=== PATIENT | female | born 1970 | race Caucasian/White ===

== ENCOUNTER → 2020-12-01 | Day surgery (SDC) | payer OTHER ==
[~2020-12-01] MED LIST: ACETAMINOPHEN500 M1 PO; ASCORBIC ACID500 MG PO; BRIN20TA PO; COLACE100 MG PO; DIALYVITE VI1250 MCG PO; DIAZEPAM 2MG TAB2 MG PO; FLONASE ALLER15.8 ML INH; GABAPENTIN800 MG PO; GLYCOTROL CAPS1 EACH PO; HCTZ12.5 MG PO; LOVAZA1 GM PO; MOTRIN600 MG PO; NIASPAN1000 MG PO; ONE DAILY WOME1 EAC1 PO; PROTONIX 40MG T40 MG PO; SUBOXONE 8 MG-1 EACH PO; ZINC50 M1 PO
== END | disposition home or self-care (01) ==
LOC: FAS 07:48
DX: C18.6 Malignant neoplasm of descending colon (principal); D36.10 Benign neoplasm of peripheral nerves and autonomic nervous system, unspecified; K21.00 Gastro-esophageal reflux disease with esophagitis, without bleeding; K31.9 Disease of stomach and duodenum, unspecified; K29.70 Gastritis, unspecified, without bleeding; E61.1 Iron deficiency; G47.30 Sleep apnea, unspecified; F32.9 Major depressive disorder, single episode, unspecified; F41.9 Anxiety disorder, unspecified; F17.290 Nicotine dependence, other tobacco product, uncomplicated; Z88.1 Allergy status to other antibiotic agents; Z88.6 Allergy status to analgesic agent; Z99.89 Dependence on other enabling machines and devices
CPT/HCPCS: 84703; J2250; J2704; J7120

== ENCOUNTER → 2020-12-12 | Day surgery (SDC) | payer OTHER | END | disposition home or self-care (01) | LOC: FAS 10:44 | DX: C18.7 Malignant neoplasm of sigmoid colon (principal); C78.7 Secondary malignant neoplasm of liver and intrahepatic bile duct; K21.9 Gastro-esophageal reflux disease without esophagitis; K21.00 Gastro-esophageal reflux disease with esophagitis, without bleeding; K63.5 Polyp of colon; G47.30 Sleep apnea, unspecified; I10 Essential (primary) hypertension; Z90.49 Acquired absence of other specified parts of digestive tract; Z98.890 Other specified postprocedural states; Z20.822 Contact with and (suspected) exposure to COVID-19 | CPT/HCPCS: 71045; 76000; 77001; 84703; C1788; J0690; J1100; J1644; J2001; J2250; J2405; J2704; J3010 ==

== ENCOUNTER 2021-10-21 11:52 | Emergency (ER) | payer OTHER ==
[2021-10-21 14:15] LABS: BASOPHIL 0.7 % (0-2); EOSINOPHIL 3.8 % (0-5); HGB 10.2 g/dl (12.5-16.0); LYMPHOCYTE 37.3 % (15-48); MCH 34.1 pg (25.0-31.0); MCHC 32.9 g/dL (32.0-36.0); MCV 103.7 fL (78.0-100.0); MONOCYTE 11.3 % (0-12); NEUTROPHIL 45.3 % (41-80); NRBC 0; PLT 172 K/uL (150-400); RBC 2.99 M/uL (4.20-5.40); RDW 14.9 % (11.5-14.0); WBC 5.5 K/uL (4.0-10.5)
[2021-10-21 14:20] LABS: INR 1.21 (0.9-1.2); PROTHROMBIN TIME 14.7 SECONDS (11.8-13.4)
[2021-10-21 14:22] LABS: D-DIMER 0.88 ug/mLFEU (0.00-0.41)
[2021-10-21 14:34] LABS: ALBUMIN 3.1 g/dL (3.4-5.0); BILIRUBIN - TOTAL 0.3 mg/dL (0.2-1.0); BUN/CREAT RATIO (CALC) 11.8 RATIO; CREATININE 0.76 mg/dL (0.51-0.95); GLOBULIN (CALCULATION) 3.6 g/dL; MAGNESIUM 1.4 mg/dL (1.8-2.4); POTASSIUM 3.3 mmol/L (3.5-5.1); TOTAL PROTEIN 6.7 g/dL (6.4-8.2)
[2021-10-21 14:40] LABS: LACTIC ACID 1.7 mmol/L (0.4-1.9)
[2021-10-21 14:58] LABS: PTT > 180 SECONDS (24.4-34.7)
[2021-10-21 17:32] LABS: BILIRUBIN NEGATIVE (NEGATIVE); BLOOD NEGATIVE Ery/uL (NEGATIVE); COLOR YELLOW (YELLOW); GLUCOSE (U) NORMAL (NORMAL); LEUKOCYTES TRACE Leu/uL (NEGATIVE); NITRITE NEGATIVE (NEGATIVE); PROTEIN NEGATIVE (NEGATIVE); SPECIFIC GRAVITY <=1.005 (1.001-1.030); UROBILINOGEN 0.2 mg/dL (0.2-1.0); pH 6.5 (5.0-9.0)
[2021-10-21 17:40] LABS: CLARITY SLIGHTLY HAZY (CLEAR)
[2021-10-21 17:42] LABS: BACTERIA TRACE; TRANSITIONAL EPITHELIAL CELLS RARE
== END 2021-10-21 19:15 | disposition home or self-care (01) ==
LOC: FER 11:52
PROVIDERS: Emergency Medicine
DX: C78.7 Secondary malignant neoplasm of liver and intrahepatic bile duct (principal); C18.9 Malignant neoplasm of colon, unspecified; Z88.1 Allergy status to other antibiotic agents
CPT/HCPCS: 36415; 80053; 81001; 83605; 83615; 83690; 83735; 84145; 85025; 85379; 85610; 85730; J1170; J2405; Q9967

== ENCOUNTER → 2022-01-06 | Day surgery (SDC) | payer OTHER ==
[~2022-01-06] VITALS: Ht 177.8 cm; Wt 93.9 kg
[~2022-01-06] MED LIST changes: +CARAFATE1 GM PO; +COQ-10100 MG PO; +DEXILANT60 MG PO; +PERCOCET 10-321 EACH PO; +VITAMIN B-121000 MC1 PO; +ZOCOR20 MG PO; +[UNRECOGNIZED DRUG - OTHER] PO
[2022-01-06 08:49] LABS: AMYLASE 54 U/L (25-115); LIPASE 87 U/L (73-393)
== END | disposition home or self-care (01) ==
LOC: FAS 12-30 14:15
PROVIDERS: Student in an Organized Health Care Education/Training Program
DX: K29.60 Other gastritis without bleeding (principal); K29.80 Duodenitis without bleeding; I10 Essential (primary) hypertension; E78.5 Hyperlipidemia, unspecified; F41.9 Anxiety disorder, unspecified; Z88.1 Allergy status to other antibiotic agents; Z88.6 Allergy status to analgesic agent; Z91.040 Latex allergy status; Z79.899 Other long term (current) drug therapy; Z85.038 Personal history of other malignant neoplasm of large intestine; Z92.21 Personal history of antineoplastic chemotherapy; Z87.19 Personal history of other diseases of the digestive system
CPT/HCPCS: 36415; 82150; 83690; 84703; J1170; J2405; J2704; J7120

== ENCOUNTER 2022-03-02 13:09 | Emergency (ER) | payer OTHER ==
[2022-03-02 15:05] LABS: BASOPHIL 0.4 % (0-2); EOSINOPHIL 0.7 % (0-5); HCT 40.4 % (37.0-47.0); LYMPHOCYTE 36.4 % (15-48); MCH 32.6 pg (25.0-31.0); MCHC 34.7 g/dL (32.0-36.0); MCV 94.2 fL (78.0-100.0); MONOCYTE 7.6 % (0-12); MPV 11.3 fL (6.0-9.5); NEUTROPHIL 54.6 % (41-80); NRBC 0; PLT 255 K/uL (150-400); RBC 4.29 M/uL (4.20-5.40); RDW 11.7 % (11.5-14.0); WBC 7.5 K/uL (4.0-10.5)
[2022-03-02 15:29] LABS: LACTIC ACID 0.9 mmol/L (0.4-1.9)
[2022-03-02 15:35] LABS: BILIRUBIN NEGATIVE (NEGATIVE); BLOOD NEGATIVE Ery/uL (NEGATIVE); CLARITY CLEAR (CLEAR); COLOR YELLOW (YELLOW); GLUCOSE (U) NORMAL (NORMAL); LEUKOCYTES NEGATIVE Leu/uL (NEGATIVE); NITRITE NEGATIVE (NEGATIVE); PROTEIN NEGATIVE (NEGATIVE); UROBILINOGEN 0.2 mg/dL (0.2-1.0)
[2022-03-02 15:45] LABS: ALBUMIN 3.7 g/dL (3.4-5.0); BILIRUBIN - TOTAL 0.5 mg/dL (0.2-1.0); BUN/CREAT RATIO (CALC) 12.3 RATIO; CREATININE 0.81 mg/dL (0.51-0.95); GLOBULIN (CALCULATION) 3.8 g/dL; POTASSIUM 3.4 mmol/L (3.5-5.1); TOTAL PROTEIN 7.5 g/dL (6.4-8.2)
[2022-03-02 15:54] LABS: SQUAMOUS EPITHELIAL CELLS >50
== END 2022-03-02 18:48 | disposition home or self-care (01) ==
LOC: FER 13:09
PROVIDERS: Physician Assistant
DX: K86.1 Other chronic pancreatitis (principal); K59.00 Constipation, unspecified; I10 Essential (primary) hypertension; C18.9 Malignant neoplasm of colon, unspecified; C79.9 Secondary malignant neoplasm of unspecified site; Z88.1 Allergy status to other antibiotic agents; Z88.8 Allergy status to other drugs, medicaments and biological substances
CPT/HCPCS: 36415; 80053; 81001; 83605; 83690; 85025; C9113; J1170; J2405; J7030

== ENCOUNTER 2022-04-22 10:01 | Emergency (ER) | payer OTHER ==
[2022-04-22 12:31] LABS: BILIRUBIN NEGATIVE (NEGATIVE); BLOOD NEGATIVE Ery/uL (NEGATIVE); CLARITY CLEAR (CLEAR); COLOR YELLOW (YELLOW); GLUCOSE (U) NORMAL (NORMAL); LEUKOCYTES NEGATIVE Leu/uL (NEGATIVE); NITRITE NEGATIVE (NEGATIVE); PROTEIN NEGATIVE (NEGATIVE); UROBILINOGEN 0.2 mg/dL (0.2-1.0); pH 5.5 (5.0-9.0)
[2022-04-22 12:35] LABS: BASOPHIL 0.5 % (0-2); HCT 43.7 % (37.0-47.0); LYMPHOCYTE 36.7 % (15-48); MCHC 34.3 g/dL (32.0-36.0); NEUTROPHIL 55.5 % (41-80); NRBC 0; PLT 283 K/uL (150-400); RBC 4.55 M/uL (4.20-5.40); RDW 11.6 % (11.5-14.0); WBC 7.6 K/uL (4.0-10.5)
[2022-04-22 13:15] LABS: ALBUMIN 3.8 g/dL (3.4-5.0); BILIRUBIN - TOTAL 0.5 mg/dL (0.2-1.0); BUN/CREAT RATIO (CALC) 12.2 RATIO; CREATININE 0.82 mg/dL (0.51-0.95); GLOBULIN (CALCULATION) 3.8 g/dL; POTASSIUM 3.4 mmol/L (3.5-5.1); TOTAL PROTEIN 7.6 g/dL (6.4-8.2)
[2022-04-22] MEDS ORDERED: IMITREX50 MG PO (15:05)
== END 2022-04-22 15:36 | disposition home or self-care (01) ==
LOC: FER 10:01
PROVIDERS: Emergency Medicine
DX: G44.009 Cluster headache syndrome, unspecified, not intractable (principal); Z20.822 Contact with and (suspected) exposure to COVID-19; Z88.1 Allergy status to other antibiotic agents; Z88.6 Allergy status to analgesic agent; Z91.040 Latex allergy status
CPT/HCPCS: 36415; 70450; 70553; 80053; 81003; 83605; 83690; 85025; 93005; A9579; J0780; J1170; J1200; J1642; J2405; J7030; U0002